=== PATIENT | female | born 1975 | race Caucasian/White ===

== ENCOUNTER 2023-05-24 09:30 | Outpatient (CLI) | payer MEDICAID, SELFPAY ==
--- NOTE | 2023-05-24 09:45 | CRLHL7_ITS ---
For Patients: As a result of the Cures Act, medical imaging exams and procedure reports are released immediately into your electronic medical record. You may view this report before your referring provider. If you have questions, please contact your health care provider. DIGITAL DIAGNOSTIC BILATERAL MAMMOGRAM USING TOMOSYNTHESIS AND COMPUTER-AIDED DETECTION RIGHT BREAST ULTRASOUND CLINICAL HISTORY: RIGHT breast lump. COMPARISON: 04/08/2021. TECHNIQUE: Digital BILATERAL mammogram in four projections. Tomosynthesis and CAD utilized. Real-time ultrasound imaging of RIGHT breast with imaging documentation. Scanning was performed by both the technologist and the radiologist. BREAST COMPOSITION: There are areas of scattered fibroglandular density. FINDINGS: There is a large microlobulated mass within the upper RIGHT breast with associated calcifications and RIGHT axillary adenopathy along with periareolar skin thickening. LEFT breast mammogram normal with unchanged intramammary lymph nodes. Targeted RIGHT breast ultrasound performed. At 1 o`clock 2 cm from the nipple, there is a large complex solid and cystic mass with heterogeneous internal echotexture measuring 3.7 x 2.3 x 3.7 cm. Enlarged RIGHT axillary lymph nodes are present with replacement of the normal central fatty kurtis. Lymph nodes measure up to 4.8 cm. IMPRESSION: Suspicious palpable mass RIGHT breast with skin thickening and RIGHT axillary adenopathy. RECOMMENDATIONS: Ultrasound-guided core needle biopsy of the RIGHT breast mass and one of the RIGHT axillary lymph nodes. Results and recommendations discussed with the patient through an interpreter for the deaf. BI-RADS Category 4: Suspicious A lay language report of this examination will be provided to the patient. Dictated by Justin Bryant MD @ 05/24/2023 11:51:07 AM /Dictated by: Justin Bryant MD @ 05/24/2023 11:51:00 AM (Electronically Signed)
--- NOTE | 2023-05-24 10:15 | CRLHL7_ITS ---
For Patients: As a result of the Cures Act, medical imaging exams and procedure reports are released immediately into your electronic medical record. You may view this report before your referring provider. If you have questions, please contact your health care provider. PLEASE SEE DIGITAL DIAGNOSTIC BILATERAL MAMMOGRAM PERFORMED SAME DAY CRL:[email or web address] justin/Dictated by: Justin Bryant MD @ 05/24/2023 11:51:00 AM (Electronically Signed)
== END 2023-05-24 09:31 | disposition home or self-care (01) ==
LOC: MAMMO 06-15 13:20
PROVIDERS: PCP Nurse Practitioner Family; Visit Provider Nurse Practitioner Family
DX: N63.10 Unspecified lump in the right breast, unspecified quadrant (principal)
CPT/HCPCS: 76642; 77066; 88305; 88341; 88342; 88360; 88361; T1013; G0279

== ENCOUNTER 2023-05-26 10:02 | Outpatient (CLI) | payer MEDICAID, SELFPAY ==
--- NOTE | 2023-05-26 10:15 | CRLHL7_ITS ---
For Patients: As a result of the Century Cures Act, medical imaging exams and procedure reports are released immediately into your electronic medical record. You may view this report before your referring provider. If you have questions, please contact your health care provider. ULTRASOUND-GUIDED BREAST BIOPSY AND POST-BIOPSY DIGITAL MAMMOGRAM FOR BIOPSY MARKER PLACEMENT CLINICAL HISTORY: Suspicious mass. COMPARISON STUDIES: 05/24/2023. TECHNIQUE: Real-time ultrasound with image documentation was used for targeting the breast lesion. Core biopsy specimens were obtained using an automated gun with a 18-gauge biopsy needle. Post-biopsy CC and ML digital mammograms were obtained to document position of the biopsy marker. CONSENT and TIME OUT: The procedure, risks, and alternatives were explained to the patient and a consent was signed. [place] Protocol was followed including pre-procedure verification that relevant information/documentation was available, reviewed and properly matched to the patient; consent accurate and complete; and equipment and supplies available. Time Out was conducted just prior to starting procedure to verify the four required elements: patient identity, correct side/site marked (if applicable), procedure, relevant images/results properly labeled and displayed (if applicable). PROCEDURE: The patient was positioned supine on the ultrasound table. The breast was prepped with ChloraPrep. 8 cc of 1 percent lidocaine used for local anesthesia. Core samples were obtained. A sterile metal biopsy clip was placed percutaneously to greer the lesion position within the breast. The specimens were placed in 10% formalin and sent to the pathology department. Pressure was held on the biopsy site until all bleeding subsided. The skin incision was closed with Steri-Strips. An ice pack was positioned over the biopsy site. Post-biopsy instructions were reviewed with the patient, and a written copy was given to her. LATERALITY: RIGHT breast. LESION: Irregular heterogeneously hypoechoic solid mass with cystic areas measuring 4.5 x 2.3 x 3.7 cm at 11 o`clock 1 cm from the nipple. SUSPICION FOR MALIGNANCY: High. NUMBER OF SAMPLES: 6. BIOPSY CLIP SHAPE: Oval. PROXIMITY OF CLIP TO TARGET: Within the lesion. IMPRESSION: Ultrasound-guided breast biopsy. When the pathology report is available, an addendum to this report will be made. ACR not applicable Dictated by Justin Bryant MD @ 05/26/2023 12:27:14 PM thomasj/Dictated by: Justin Bryant MD @ 05/26/2023 12:27:00 PM ADDENDUM: The final pathology report states invasive ductal carcinoma of the RIGHT breast with necrosis, [place] grade III of III, Brenda score 9 of 9. The RIGHT axillary lymph node was also biopsied demonstrating invasive ductal carcinoma with necrosis. Brenda grade III of III, [place] score 9 of 9. The final pathology report is concordant with the imaging findings. KIN GUTIÉRREZ M.D. Diagnostic/Nuclear Medicine Radiologist [email or web address] MADAY:margoth D& Transcribed: 2:30 p.m. (Electronically Signed)
--- NOTE | 2023-05-26 11:00 | CRLHL7_ITS ---
For Patients: As a result of the Century Cures Act, medical imaging exams and procedure reports are released immediately into your electronic medical record. You may view this report before your referring provider. If you have questions, please contact your health care provider. PLEASE SEE ULTRASOUND-GUIDED RIGHT BREAST BIOPSY PERFORMED SAME DAY CRL:[email or web address] justin/Dictated by: Justin Bryant MD @ 05/26/2023 12:27:00 PM (Electronically Signed)
--- NOTE | 2023-05-26 11:00 | CRLHL7_ITS ---
For Patients: As a result of the Century Cures Act, medical imaging exams and procedure reports are released immediately into your electronic medical record. You may view this report before your referring provider. If you have questions, please contact your health care provider. ULTRASOUND-GUIDED RIGHT AXILLARY LYMPH NODE BIOPSY CLINICAL HISTORY: SUSPICIOUS RIGHT AXILLARY ADENOPATHY COMPARISON STUDIES: 05/24/2023 TECHNIQUE: Real-time ultrasound with image documentation was used for targeting the breast lesion. Core biopsy specimens were obtained using an automated gun with a 18-gauge biopsy needle. CONSENT and TIME OUT: The procedure, risks, and alternatives were explained to the patient and a consent was signed. [place] Protocol was followed including pre-procedure verification that relevant information/documentation was available, reviewed and properly matched to the patient; consent accurate and complete; and equipment and supplies available. Time Out was conducted just prior to starting procedure to verify the four required elements: patient identity, correct side/site marked (if applicable), procedure, relevant images/results properly labeled and displayed (if applicable). PROCEDURE: The patient was positioned supine on the ultrasound table. The right axilla was prepped with ChloraPrep. 10 cc of 1 percent lidocaine used for local anesthesia. Core samples were obtained. A sterile metal biopsy clip was placed percutaneously to greer the lesion position within the right axilla. The specimens were placed in 10% formalin and sent to the pathology department. Pressure was held on the biopsy site until all bleeding subsided. The skin incision was closed with Steri-Strips. An ice pack was positioned over the biopsy site. Post-biopsy instructions were reviewed with the patient, and a written copy was given to her. LATERALITY: Right axilla LESION: Enlarged hypoechoic lymph node measuring 1.9 x 2.9 x 4.8 cm in the right axilla. SUSPICION FOR MALIGNANCY: High NUMBER OF SAMPLES: 5 BIOPSY CLIP SHAPE: Oval PROXIMITY OF CLIP TO TARGET: Within the lesion IMPRESSION: Ultrasound-guided right axillary lymph node biopsy. When the pathology report is available, an addendum to this report will be made. ACR not applicable Dictated by Justin Bryant MD @ 05/26/2023 12:29:51 PM ADDENDUM: The final pathology report states invasive ductal carcinoma of the RIGHT breast with necrosis, Brenda grade III of III, [place] score 9 of 9. The RIGHT axillary lymph node was also biopsied demonstrating invasive ductal carcinoma with necrosis. Brenda grade III of III, [place] score 9 of 9. The final pathology report is concordant with the imaging findings. KIN GUTIÉRREZ M.D. Diagnostic/Nuclear Medicine Radiologist [email or web address] MADAY:margoth D& Transcribed: 2:30 p.m. (Electronically Signed)
== END 2023-05-26 10:03 | disposition home or self-care (01) ==
LOC: US 10:05
PROVIDERS: PCP Nurse Practitioner Family; Visit Provider Nurse Practitioner Family
DX: N63.10 Unspecified lump in the right breast, unspecified quadrant (principal); C50.919 Malignant neoplasm of unspecified site of unspecified female breast
CPT/HCPCS: 19083; 38505; 76942; 77065; 88305; 88341; 88342; 88360; 88361; T1013; A4648; A4649

== ENCOUNTER 2023-06-09 07:07 | Outpatient (CLI) | payer MEDICAID, SELFPAY ==
--- NOTE | 2023-06-09 07:15 | CRLHL7_ITS ---
For Patients: As a result of the 21st Century Cures Act, medical imaging exams and procedure reports are released immediately into your electronic medical record. You may view this report before your referring provider. If you have questions, please contact your health care provider. BILATERAL BREAST MRI WITHOUT AND WITH GADOLINIUM, 06/09/2023 CLINICAL HISTORY: 47-year-old with newly diagnosed RIGHT breast cancer. Diagnosis was obtained from biopsy of a RIGHT breast mass at the 11 o???clock position 1 cm from the nipple measuring 4.5 x 2.3 x 3.7 cm and a RIGHT axillary mass measuring 1.9 x 2.9 x 4.8 cm yielding invasive ductal carcinoma with necrosis demonstrating invasive ductal carcinoma with necrosis and fibrous tissue. INDICATION FOR BREAST MRI: Staging of newly diagnosed breast cancer and screening of contralateral breast. Regional lymph nodes will also be assessed. COMPARISON STUDIES: Mammogram 05/24/2023. Ultrasound 05/24/2023. Mammogram 05/26/2023. CONTRAST: 15 cc Dotarem. TECHNIQUE: The patient was positioned prone using a breast coil. Multiple imaging sequences were obtained using 1-1.5 mm thick slices with no gap. The image sequences include T2-weighted STIR in the axial plane, T1-weighted nonfat-saturated gradient echo in the axial plane, pre- and post-contrast T1-weighted FLASH 3D with fat suppression in the axial plane, and T1-weighted FLASH high-resolution 3D with fat suppression in the sagittal plane. Image post-processing was performed on a [employer] workstation. Complex 3D rendering including maximum intensity projections (MIPS) and volumetric renderings were obtained to optimize visualization of the extent of pathology and relationship to the nipple, skin, and chest wall. This aids in determining feasibility of breast conservation surgery. Subtraction, multiplanar reconstruction, mean curve determination, and angiogenesis mapping were also performed. The study was technically adequate. FINDINGS: Amount of Fibroglandular Tissue: Heterogeneous fibroglandular tissue. Breast Background Enhancement: Moderate (50-75%). RIGHT and LEFT Breast: In the RIGHT retroareolar breast, there is an irregular cystic mass reflecting the patient???s biopsied cancer. The mass has irregular margins with irregular rim of soft tissues measuring 3.9 x 3.5 x 5.2 cm. The mass demonstrates rapid initial uptake and rapid washout. This mass extends into the nipple areolar complex with skin thickening and enhancement of the skin. There are multiple irregular nodular enhancement in the skin which likely reflects involvement of the skin. Additionally, the biopsied RIGHT axillary mass measures 3 x 2.2 x 4.6 cm with the clip present. This is an irregular marginated partially cystic mass with Type III enhancement kinetics. Additionally, there are multiple abnormal Level I axillary lymph nodes with the largest second node measuring up to 1.9 x 1.4 cm. There is a Level II lymph node measuring 3 x 1.3 cm which is along the lateral margin between the pectoralis minor and major muscle. No abnormal enhancement in the LEFT breast. There are no abnormal LEFT axillary lymph nodes. IMPRESSIONS AND RECOMMENDATIONS: 1. 5.2 x 3.9 x 3.5 cm RIGHT retroareolar cystic mass with irregular rim enhancement likely reflecting a necrotic mass. The mass extends into the nipple areolar complex. There is surrounding skin thickening and abnormal enhancement with nodular areas of enhancement within the skin. This most likely involves the skin. Additionally, the biopsied RIGHT axillary mass measures 3 x 2.2 x 4.6 cm and may represent a completely replaced RIGHT axillary lymph node or primary malignancy along the axillary tail. There are numerous Level I and a single Level II abnormal axillary lymph nodes. The second largest Level I lymph node measures 1.9 x 1.4 cm with complete replacement of the fatty hilum. There is an abnormal necrotic-appearing Level II lymph node that is along the lateral margin between the pectoralis minor major muscle measuring 1.3 x 1.8 cm. Multiple other smaller abnormal lymph nodes are present. 2. No abnormal enhancement in the LEFT breast or abnormal axillary lymph nodes. Surgical and oncological management per referring physician. BI-RADS: BI-RADS Category 6: Known Biopsy-Proven Malignancy Chey Perez M.D. Diagnostic/Breast Radiologist [email or web address] JEANP/[email or web address] PT/Dictated by: Chey Perez MD @ 06/12/2023 9:44:00 AM (Electronically Signed)
== END 2023-06-09 07:08 | disposition home or self-care (01) ==
PROVIDERS: PCP Nurse Practitioner Family; Visit Provider Surgery
DX: C50.919 Malignant neoplasm of unspecified site of unspecified female breast (principal); Z17.1 Estrogen receptor negative status [ER-]
CPT/HCPCS: 77049; T1013; A9575

== ENCOUNTER 2023-06-19 10:48 | Outpatient (CLI) | payer MEDICAID, SELFPAY ==
--- NOTE | 2023-06-19 10:45 | CRLHL7_ITS ---
For Patients: As a result of the Century Cures Act, medical imaging exams and procedure reports are released immediately into your electronic medical record. You may view this report before your referring provider. If you have questions, please contact your health care provider. INDICATION: Carcinoma of the breast. Staging. TECHNIQUE: Sagittal T1, axial FLAIR, T2 diffusion-weighted T1 multiplanar sequences before and after infusion of gadolinium contrast and axial susceptibility weighted images are obtained. FINDINGS: The lateral, 3rd and 4th ventricles are normal in size and shape. There is no evidence of acute ischemic infarction. There are no areas of diffusion restriction. There is no evidence of intracranial hemorrhage. There are no subdural fluid collections. There are no enhancing intra-axial or extra-axial lesions. No evidence of intracranial metastatic neoplasm. No enhancing calvarial or skullbase lesions to suggest osseous metastasis. The orbits, sella and skullbase are unremarkable. There is minor mucosal thickening in the left maxillary sinus. IMPRESSION: 1. No evidence of intracranial metastatic neoplasm. No evidence of acute intracranial abnormality. 2. Few tiny nonenhancing foci of FLAIR hyperintensity may relate to migraine or mild chronic microvascular ischemia. Dictated by Linwood Ayala MD @ 06/19/2023 3:46:12 PM (Electronically Signed)
--- NOTE | 2023-06-19 11:30 | CRLHL7_ITS ---
For Patients: As a result of the 21st Century Cures Act, medical imaging exams and procedure reports are released immediately into your electronic medical record. You may view this report before your referring provider. If you have questions, please contact your health care provider. Indication: BREAST CANCER Technique: Postcontrast CT chest, abdomen and pelvis. 97 cc Isovue 370 intravenous contrast. Please note that all CT scans at this facility use dose modulation, iterative reconstruction, and/or weight-based dosing when appropriate to reduce radiation dose to as low as reasonably achievable. Comparison: Breast MRI 06/09/2023 Findings: In the chest, biopsied mass in the right subareolar space again noted measuring 4.4 x 3.1 cm. Biopsy clip is present within this mass. There is overlying skin thickening. Multiple enlarged right axillary lymph nodes are present. The largest lymph node contains a biopsy clip and measures 3.2 x 2.0 cm. The subareolar mass does not involve the chest wall. No enlargement of the internal mammary lymph nodes. Residual thymic tissue is noted in the anterior mediastinum. No mediastinal, hilar or left axillary adenopathy. A 2.9 millimeter pulmonary nodule is present in the right upper lobe, 3/35. A pleural-based nodular density is present within the right middle lobe measuring 3 millimeters, 3/57. No vertebral body compression fracture. A small focal density is noted within the right lateral 5th rib, series 2, image 36 bone windows. Small focus of density within the left humeral head. Tiny focal densities are present within the T10, T8 and T2 vertebral bodies. In the abdomen, there are 3 slightly hyperattenuating lesions within the liver, measuring 1.4 cm in the left hepatic lobe and measuring 1.2 cm and 1.0 cm in the right hepatic lobe, best visualized on series 11, image 30 and series 11, image 32. The gallbladder is normal. No calcified gallstones. No biliary obstruction. The pancreas is normal. Right adrenal gland is normal. Left adrenal gland nodule is present measuring 1.2 cm. Subcentimeter cyst within the upper pole of the right kidney. Left kidney is normal. No retroperitoneal adenopathy. No mesenteric adenopathy. No hiatal hernia. Normal spleen. In the pelvis, the bladder is normal. Normal uterus. IUD in the midline of the uterus. No adnexal mass. A 2.7 cm posterior uterine fibroid is present. A sclerotic focus is present within the L1 vertebral body measuring 1.0 cm. Small density within the left posterior acetabulum. Additional sclerotic focus in the left sacrum. No pelvic or inguinal adenopathy. No abdominal wall hernia. Impression: Biopsy-proven malignancy involving the right breast and right axillary lymph nodes again demonstrated. Numerous sclerotic foci throughout the skeletal system concerning for metastatic disease. The largest lesion is within L1 and measures 1 cm. No pathologic fracture. 2.9 millimeter pulmonary nodule right upper lobe. Pleural based nodule right middle lobe measuring 3 millimeters. Indeterminate hepatic lesions measuring 1.4 cm, 1.2 cm and 1.0 cm. Also indeterminate 1.2 cm left adrenal nodule. Dedicated pre and post-contrast MRI recommended for further evaluation. Incidental 2.7 cm posterior uterine fibroid. Please note that all CT scans at this facility use dose modulation, iterative reconstruction, and/or weight-based dosing when appropriate to reduce radiation dose to as low as reasonably achievable. Dictated by Justin Bryant MD @ 06/20/2023 11:11:08 AM (Electronically Signed)
== END 2023-06-19 10:49 | disposition home or self-care (01) ==
LOC: MRI 10:50
PROVIDERS: PCP Nurse Practitioner Family; Visit Provider Surgery
DX: C50.919 Malignant neoplasm of unspecified site of unspecified female breast (principal); I67.82 Cerebral ischemia
CPT/HCPCS: 70553; 71260; 74177; T1013; A9575; Q9967

== ENCOUNTER 2023-06-22 08:16 | Outpatient (CLI) | payer MEDICAID, SELFPAY ==
--- NOTE | 2023-06-22 08:00 | CRLHL7_ITS ---
For Patients: As a result of the Century Cures Act, medical imaging exams and procedure reports are released immediately into your electronic medical record. You may view this report before your referring provider. If you have questions, please contact your health care provider. INDICATION: Newly diagnosed right-sided breast cancer. TECHNIQUE: 24.8 mCi technetium labeled MDP administered. Delayed whole body images obtained with the patient at rest. Spot lateral views of the chest and pelvis were obtained. COMPARISON: Correlation is made with a recent CT of the chest abdomen and pelvis June 19, 2023. Correlation is made with an MRI of the abdomen June 22, 2023. FINDINGS: There is good uptake of activity by the skeleton. There is no scintigraphic evidence for skeletal metastatic disease. Specifically there is no focal abnormal activity at L1, left posterior acetabulum, and left sacrum. The small sclerotic foci described on the prior CT could reflect small bone islands. There is mild degenerative-type activity within the hips, knees, and ankles. A small discrete focus within the distal right tibia is either posttraumatic or may be related to degenerative change at or just above the ankle. Plain radiographic correlation may be helpful. The kidneys are present without obstruction. IMPRESSION: No scintigraphic evidence for skeletal metastatic disease. A small focus in the distal right tibia may reflect degenerative change within the ankle or perhaps is posttraumatic in nature. Consider plain radiographic correlation of the distal right tibia and fibula and ankle. Dictated by Linwood Richardson MD @ 06/22/2023 4:53:12 PM (Electronically Signed)
--- NOTE | 2023-06-22 10:00 | CRLHL7_ITS ---
For Patients: As a result of the Century Cures Act, medical imaging exams and procedure reports are released immediately into your electronic medical record. You may view this report before your referring provider. If you have questions, please contact your health care provider. INDICATION: Metastatic breast carcinoma; lesions liver and left adrenal gland; further assessment. COMPARISON: CT chest, abdomen and pelvis with intravenous contrast June 19, 2023. TECHNIQUE: Precontrast T1 and T2 weighted imaging; T2 haste imaging; diffusion weighted imaging; in and out of phase imaging; postcontrast imaging including subtraction; 15 cc Dotarem contrast was injected. 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 No other hepatic abnormalities are identified. Some of the lesions in the right hepatic lobe that were seen on the CT might be transient hepatic perfusion abnormalities. No evidence of restriction of diffusion. No splenic pathology. No pancreatic pathology. Gallbladder is unremarkable. The right adrenal gland is unremarkable. The nodule in the left adrenal gland has significant signal loss on the out of phase imaging indicating a lipid rich adenoma. Kidneys are unremarkable. Retro aortic left renal vein with absent anterior component; normal variant. No evidence of abdominal ascites. Lymphadenopathy in the right axilla and a mass in the right breast. Impression : 1. 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 2. Other liver lesions are not identified on the MR and may represent transient perfusion abnormalities. 3. Nodule in the left internal gland has signal dropout on the out of phase imaging indicating a lipid rich adenoma. 4. Right axillary lymphadenopathy and right breast lesion. Dictated by Madison Malhotra MD @ 06/23/2023 11:50:10 AM (Electronically Signed)
== END 2023-06-22 08:17 | disposition home or self-care (01) ==
LOC: NM 08:16
PROVIDERS: PCP Nurse Practitioner Family; Visit Provider Internal Medicine Hematology & Oncology
DX: C50.911 Malignant neoplasm of unspecified site of right female breast (principal); K76.9 Liver disease, unspecified; R59.9 Enlarged lymph nodes, unspecified
CPT/HCPCS: 74183; 78306; T1013; A9503; A9575

== ENCOUNTER 2023-07-06 09:01 | Day surgery (SDC) | payer MEDICAID, SELFPAY ==
[2023-07-06 09:17] VITALS: BMI 37.8
[2023-07-06 09:36] VITALS: BP 90/51; PULSE 60; RESP 16; TEMP 36.4; O2SAT 96
[2023-07-06] MEDS: LACTATED RINGERS 1000 ML 1,000 ML 100 ML IV (09:39)
[2023-07-06] MEDS: SODIUM CHLORIDE 0.9 % (FLUSH) 10 ML SYRINGE IVF (09:40)
--- NOTE | 2023-07-06 09:49 | W.ANESCHARGE ---
Anesthesia Charges Start Date/Time Anesthesia Start Date: 07/06/23 Anesthesia Start Time: 10:00 Stop Date/Time Anesthesia Stop Date: 07/06/23 Anesthesia Stop Time: 11:04
--- NOTE | 2023-07-06 10:15 | CRLHL7_ITS ---
For Patients: As a result of the Century Cures Act, medical imaging exams and procedure reports are released immediately into your electronic medical record. You may view this report before your referring provider. If you have questions, please contact your health care provider. INDICATION: Right-sided Port-A-Cath placement. TECHNIQUE: Fluoroscopically guided intraoperative right sided Port-A-Cath placement. FINDINGS: 56.7 seconds fluoroscopy time utilized intraoperatively. A single spot image demonstrates a right-sided Port-A-Cath with its tip in the superior vena cava. IMPRESSION: 56.7 seconds fluoroscopy time utilized intraoperatively. Dictated by Linwood Richardson MD @ 07/06/2023 11:48:44 AM (Electronically Signed)
[2023-07-06] MEDS: BUPIVACAINE 0.5% 30 ML 20 ML INJECTION (10:19)
[2023-07-06] MEDS: LIDOCAINE 1% MDV 20 ML INJECTION (10:19)
[2023-07-06] MEDS: 0.9% SODIUM CHL 50 ML VIAL INJECTION (10:44)
[2023-07-06] MEDS: HEPARIN 500 UNIT/5 ML SYRINGE IVF (10:44)
--- NOTE | 2023-07-06 10:55 | CRLHL7_ITS ---
For Patients: As a result of the Century Cures Act, medical imaging exams and procedure reports are released immediately into your electronic medical record. You may view this report before your referring provider. If you have questions, please contact your health care provider. INDICATION: Right-sided breast cancer. Right-sided Port-A-Cath placement. Follow up. TECHNIQUE : AP portable post protective image of the chest. FINDINGS: There is a right-sided Port-A-Cath with its lead tip in superior vena cava. No pneumothorax. Clear lungs. Overall heart size is toward the upper limit of normal accentuated by the portable technique. Surgical clip in the right breast. IMPRESSION : Right-sided Port-A-Cath with its lead tip in the superior vena cava. No pneumothorax. Dictated by Linwood Richardson MD @ 07/06/2023 11:50:38 AM (Electronically Signed)
--- NOTE | 2023-07-06 10:56 | PM.GSPRC ---
Operative Note Pre-op diagnosis: Right breast cancer metastatic to axillary lymph nodes Post-op diagnosis: Same Type of Procedure: Right IJ port placement with ultrasound and fluoroscopic guidance Indications: The patient is a 47-year-old female who was found to have a right breast mass. 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 Because of her clinical stage in triple negative status neoadjuvant chemotherapy was recommended. She is here today for port placement. Procedure Description: After discussing the risks and benefits of the procedure, the patient signed informed consent.? The operative site was marked and the patient was brought to the operating room and placed on the operating table in supine position.? Care was taken to pad the patient's pressure points.?? The patient was then given sedation by anesthesia.?? The operative site was then prepped and draped in the usual sterile fashion.? A time-out was then performed. The patient's right internal jugular vein was visualized using ultrasound. Local anesthetic was injected into the skin overlying the vein. This was accessed percutaneously using ultrasound guidance. Using Seldinger technique, a guidewire was threaded through the needle. A skin yu was made around the wire. Next, local anesthetic was injected into the skin below the clavicle and along the proposed tract to the neck incision. A skin incision was then made with a 15 blade and a pocket created in the subcutaneous tissue with cautery. A tunneler was then used to thread the catheter from the chest wall pocket to the neck incision. Once this was done fluoroscopy was brought into the field. Over the wire the tract was dilated using fluoroscopy. The wire and the dilator were then removed leaving the sheath in the vein. Through this, the catheter was threaded. Using fluoroscopy, the catheter was positioned into the distal SVC. The catheter was noted to flush and aspirate easily. The catheter was then connected to the port. The port was placed in the pocket and secured in place with 2 0 Prolene sutures. It was noted to flush and aspirate easily. This was then locked with heparinized saline. The skin was closed with absorbable suture. Sterile dressings were applied. Instrument sponge and needle counts were correct at the end of the case. The patient was woken and taken to the PACU in stable condition. ? The patient tolerated the procedure well. Findings: Right IJ PowerPort placed in the low SVC. Anesthesia: MAC Surgeon: Devika Kwon MD Estimated blood loss (mL): 5 Condition: stable Disposition: same day
[2023-07-06 11:05] VITALS: BP 96/57; PULSE 51; RESP 16; TEMP 36.4; O2SAT 96
--- NOTE | 2023-07-06 11:08 | W.ANESCHARGE ---
Anesthesia Charges Start Date/Time Anesthesia Start Date: 07/06/23 Anesthesia Start Time: 10:00 Stop Date/Time Anesthesia Stop Date: 07/06/23 Anesthesia Stop Time: 11:04
[2023-07-06 11:15] VITALS: BP 95/55; PULSE 66; RESP 16; O2SAT 97
[2023-07-06 11:30] VITALS: BP 94/57; PULSE 57; RESP 16; O2SAT 98
[2023-07-06 11:45] VITALS: BP 103/50; PULSE 52; RESP 16; O2SAT 98
== END 2023-07-06 12:40 | disposition home or self-care (01) ==
PROVIDERS: PCP Nurse Practitioner Family; Visit Provider Surgery
PROC: (CPT 36561; principal; 2023-07-06 10:15)
DX: Z45.2 Encounter for adjustment and management of vascular access device (principal); C50.919 Malignant neoplasm of unspecified site of unspecified female breast; C77.3 Secondary and unspecified malignant neoplasm of axilla and upper limb lymph nodes; Z17.1 Estrogen receptor negative status [ER-]
CPT/HCPCS: 36561; 00532; 71045; 76000; T1013; C1788; J0665; J1642; J2250; J2704; J3010; J7120

== ENCOUNTER 2023-07-24 16:13 | Outpatient (CLI) | payer MEDICAID, SELFPAY ==
--- NOTE | 2023-07-24 16:30 | CRLHL7_ITS ---
For Patients: As a result of the Century Cures Act, medical imaging exams and procedure reports are released immediately into your electronic medical record. You may view this report before your referring provider. If you have questions, please contact your health care provider. INDICATION: ABNORMAL PET CT COMPARISON: CT head 06/29/2023 TECHNIQUE: Lemons scale and color Doppler images were acquired of the thyroid gland. FINDINGS: The thyroid gland demonstrates diffusely heterogeneous echogenicity and has a lobular outer contour. The right lobe measures 3.8 x 1.9 x 1.7 cm and the left lobe measures 3.7 x 2.2 x 1.6 cm in size. There are no suspicious masses or nodules. The isthmus measures 7 millimeters. The color Doppler images demonstrate normal vascularity. There is no evidence of cervical lymphadenopathy or parathyroid mass. IMPRESSION: Enlarged and diffusely heterogeneous thyroid gland without suspicious nodule. Dictated by Justin Bryant MD @ 07/26/2023 10:08:27 AM (Electronically Signed)
== END 2023-07-24 16:14 | disposition home or self-care (01) ==
LOC: US 16:14
PROVIDERS: PCP Nurse Practitioner Family; Visit Provider Internal Medicine Hematology & Oncology
DX: E04.1 Nontoxic single thyroid nodule (principal); D25.9 Leiomyoma of uterus, unspecified
CPT/HCPCS: 76536; T1013

== ENCOUNTER 2023-11-04 10:00 | Outpatient (RCR) | payer MEDICAID, SELFPAY ==
--- NOTE | 2023-06-28 10:41 | URNOTE ---
Pembrolizumab (J9271) has been approved for 1 dose, 07/03/2023-07/13/2023. [place] ends 07/13/2023
--- NOTE | 2023-06-30 12:20 | URNOTE ---
Request received for authorization for?Taxol (J9267), Carboplatin (J9045), Aloxi (J2469) and Pembrolizumab (J9271). Prior authorization is not required for Taxol (J9267), Carboplatin (J9045), Aloxi (J2469). Note: Pembrolizumab (J9271) has been approved for 1 dose, 07/03/2023-07/13/2023. [place] ends 07/13/2023.
[2023-07-03 13:53] LABS: Basophils Absolute Auto 0.02 K/uL (0.00-0.30); Basophils Percent Auto 0.2 % (0.0-3.0); Eosinophils Absolute Auto 0.18 K/uL (0.00-0.50); Eosinophils Percent Auto 1.8 % (0.0-7.0); Hematocrit 42.7 % (33.0-51.0); Hemoglobin* 13.7 gm/dL (12.0-16.0); Immature Granulocytes Abs Auto 0.01 K/uL (0.00-0.30); Immature Granulocytes Pct Auto 0.1 %; Lymphocytes Absolute Auto 2.72 K/uL (0.90-2.90); Lymphocytes Percent Auto 27.9 % (20-44); Mean Corpuscular HGB Conc 32 gm/dL (32-36); Mean Corpuscular Hemoglobin 28 pg (26-34); Mean Corpuscular Volume 88 fL (80-100); Monocytes Percent Auto 6.4 % (0.0-11.0); Neutrophils Percent Auto 63.6 % (42.0-72.0); Platelet Count* 322 K/uL (140-440); RDW Coefficient of Variation % 12.5 % (11.5-15.5); Red Blood Count 4.84 m/uL (4.00-5.20); White Blood Count* 9.75 K/uL (4.50-11.00)
[2023-07-03 14:01] LABS: Slide Review Reflex No
[2023-07-03 14:11] LABS: Albumin* 4.4 g/dL (3.3-5.0); Chloride* 105 mmol/L (96-114); Potassium* 4.2 mmol/L (3.6-5.1); Sodium* 139 mmol/L (135-149)
[2023-07-03 14:14] LABS: Alanine Aminotransferase* 22 U/L (4-35); Alkaline Phosphatase* 77 U/L (40-150); Anion Gap 7 mEq/L (7-15); Aspartate Amino Transferase* 25 U/L (12-35); Bilirubin Total* 0.6 mg/dL (0.1-1.5); Blood Urea Nitrogen* 13 mg/dL (5-24); Carbon Dioxide* 27 mmol/L (20-32); Creatinine* 0.5 mg/dL (0.5-1.5); Est. Creatinine Clearance* 100.98; Estimated Glomerular Filt Rate 117 ml/min
[2023-07-03 14:15] LABS: Glucose* 84 mg/dL (60-115)
--- NOTE | 2023-07-03 15:37 | ONC.NURNOTE ---
With the assistance of the medical professionals, contents of the chemotherapy binder were reviewed. We discussed at length the side effects of chemotherapy, what to report to her care team and what to do after hours. Patients questions were answered. Plan of care reviewed including: new start chemotherapy 07/04, port placement 07/06 and follow up+treatment 07/13.
[2023-07-04 08:32] VITALS: BP 106/69; PULSE 73; RESP 16; TEMP 36.6; O2SAT 96
[2023-07-04] MEDS: PEMBROLIZUMAB 200 MG, TUBING PRIMARY 1 EACH, In-line 0.2 micron filter set 1 EACH in 0.... 216 MG IVPB (08:58)
[2023-07-04] MEDS: PALONOSETRON 0.25 MG/5 ML inj IV (09:38)
[2023-07-04] MEDS: dexAMETHasone 20 MG in 0.9 % SODIUM CHLORIDE 100 ml 100 ML 408 MG IVPB (09:38)
[2023-07-04] MEDS: FAMOTIDINE 20 MG, diphenhydrAMINE 50 MG in 0.9 % SODIUM CHLORIDE 100 ml 100 ML 309 MG IVPB (10:00)
[2023-07-04 12:40] VITALS: BP 107/70; PULSE 62
[2023-07-04 12:47] VITALS: BP 97/62; PULSE 62; RESP 16; O2SAT 93
[2023-07-04 21:28] LABS: Cortisol, Serum 6.3 ug/dL
--- NOTE | 2023-07-05 11:29 | ONC.NURNOTE ---
Per Jeanie with [employer], pt called to f/u 1st day chemo. She is feeling well, no nausea. She was sleepy after chemo yesterday. Denies concerns and will call with questions.
[2023-07-06 20:02] LABS: Calcium* 9.6 mg/dL (8.4-10.6)
[2023-07-13] VITALS (10 sets, daily range): BP systolic 82–110; BP diastolic 49–75; PULSE 57–68; RESP 18–20; TEMP 36.3–36.8; O2SAT 92–95
[2023-07-13 08:59] LABS: Basophils Absolute Auto 0.04 K/uL (0.00-0.30); Basophils Percent Auto 0.5 % (0.0-3.0); Eosinophils Absolute Auto 0.36 K/uL (0.00-0.50); Eosinophils Percent Auto 4.8 % (0.0-7.0); Hematocrit 39.1 % (33.0-51.0); Hemoglobin* 12.5 gm/dL (12.0-16.0); Immature Granulocytes Abs Auto 0.02 K/uL (0.00-0.30); Immature Granulocytes Pct Auto 0.3 %; Lymphocytes Absolute Auto 2.47 K/uL (0.90-2.90); Lymphocytes Percent Auto 32.6 % (20-44); Mean Corpuscular HGB Conc 32 gm/dL (32-36); Mean Corpuscular Hemoglobin 29 pg (26-34); Mean Corpuscular Volume 89 fL (80-100); Monocytes Percent Auto 5.2 % (0.0-11.0); Neutrophils Absolute Auto 4.29 K/uL (1.7-7.0); Neutrophils Percent Auto 56.6 % (42.0-72.0); Platelet Count* 294 K/uL (140-440); RDW Coefficient of Variation % 12.5 % (11.5-15.5); Red Blood Count 4.38 m/uL (4.00-5.20); White Blood Count* 7.57 K/uL (4.50-11.00)
[2023-07-13 09:08] LABS: Slide Review Reflex No
[2023-07-13 09:19] LABS: Albumin* 4.1 g/dL (3.3-5.0); Chloride* 106 mmol/L (96-114); Sodium* 141 mmol/L (135-149)
[2023-07-13 09:20] LABS: Potassium* 3.8 mmol/L (3.6-5.1)
[2023-07-13 09:22] LABS: Alanine Aminotransferase* 26 U/L (4-35); Alkaline Phosphatase* 70 U/L (40-150); Anion Gap 8 mEq/L (7-15); Aspartate Amino Transferase* 25 U/L (12-35); Bilirubin Total* 0.5 mg/dL (0.1-1.5); Blood Urea Nitrogen* 14 mg/dL (5-24); Carbon Dioxide* 27 mmol/L (20-32); Creatinine* 0.6 mg/dL (0.5-1.5); Est. Creatinine Clearance* 84.15; Estimated Glomerular Filt Rate 112 ml/min; Glucose* 126 mg/dL (60-115); Total Protein* 7.4 g/dL (6.0-8.3)
[2023-07-13 09:23] LABS: Calcium* 9.5 mg/dL (8.4-10.6)
[2023-07-13] MEDS: PALONOSETRON 0.25 MG/5 ML inj IV (10:11)
[2023-07-13] MEDS: dexAMETHasone 20 MG in 0.9 % SODIUM CHLORIDE 100 ml 100 ML 408 MG IVPB (10:22)
[2023-07-13] MEDS: FAMOTIDINE 20 MG, diphenhydrAMINE 50 MG in 0.9 % SODIUM CHLORIDE 100 ml 100 ML 412 MG IVPB (10:40)
[2023-07-13] MEDS: METHYLPREDNISOLONE SOD SUCC 40 MG/ML IVP (12:03)
[2023-07-13] MEDS: 0.9 % SODIUM CHLORIDE 250 ml IV (16:31)
[2023-07-13] MEDS: HEPARIN 500 UNIT/5 ML SYRINGE IVF (16:31)
[2023-07-13] MEDS: SODIUM CHLORIDE 0.9 % (FLUSH) 10 ML SYRINGE IVF (16:32)
--- NOTE | 2023-07-13 16:40 | ONC.NURNOTE ---
Pt here today for C1D8 Taxo/Carbo; saw Dr. Clark. For premeds, Dex/Aloxi given first; Benadryl/Pepcid given 2nd. After Benadryl completed, pt very sleepy with some restlessness of legs. Six min into Taxol infusion, pt had sudden onset of coughing with throat tightness, dizziness, nausea with dry heaves, needing to urinate and is very pale. Taxol stopped; Janny Pham APRN in to assess pt. Monitored VS; pt hypotensive at 80's-90's/50's. Sats 92% when Taxol stopped, increased to and averaging 94%. NS 200ml/hr IV began at 1152.? At 1203 gave 40mg IV Solumedrol x 1.? Pt's symptoms improved, not orthostatic. Pt up to BR with SBA; minimal dizziness and nausea. Pt resting.? Restarted Taxol at 1249 at 69 ml/hr x 15 min. Tolerated well; VSS. Increased to 138 ml/hr x 15 min; tolerated well, VSS. Increased to 207 ml/hr x 15 min; tolerated well. Ran at full rate for remaining 50% of infusion; tolerated well and tolerated Carbo well. Per Janny Pham APRN/Dr. Clark, plan for 20mg Pepcid and Claritin PO night before and morning of next chemo. Pt will then have Benadryl 25 mg 45-60min before chemo instead of IV premed. BNN to review with pt while scheduling next follow up appts.
[2023-07-16 00:36] LABS: Cancer Antigen 125 147 U/mL (<=38)
[2023-07-28] VITALS (8 sets, daily range): BP systolic 104–133; BP diastolic 61–74; PULSE 74–91; RESP 12–16; TEMP 36.1–36.2; O2SAT 94–99
--- NOTE | 2023-07-28 07:59 | ONC.NURNOTE ---
Addendum entered by Astrid Escalante RN 07/28/23 12:28: correction-pt instructed to take claritan, not benadryl Original Note: Late entry: 07/27/23 1700. Pt called via telephone microbial specialist to come in on 07/28/23 for chemotherapy, not Keytruda. Explained to pt Janny Fleming APRN received approval to proceed with chemo with insurance not active at this time. Pt instructed to take benadryl and pepcid evening of 07/27/23 and morning of 07/28/23. Pt verbalized understanding of plan of care.
[2023-07-28 09:34] LABS: Chloride* 106 mmol/L (96-114); Sodium* 140 mmol/L (135-149)
[2023-07-28 09:35] LABS: Potassium* 3.8 mmol/L (3.6-5.1)
[2023-07-28 09:36] LABS: Basophils Absolute Auto 0.02 K/uL (0.00-0.30); Basophils Percent Auto 0.3 % (0.0-3.0); Eosinophils Absolute Auto 0.13 K/uL (0.00-0.50); Hematocrit 37.6 % (33.0-51.0); Hemoglobin* 12.1 gm/dL (12.0-16.0); Immature Granulocytes Abs Auto 0.01 K/uL (0.00-0.30); Immature Granulocytes Pct Auto 0.2 %; Lymphocytes Absolute Auto 2.34 K/uL (0.90-2.90); Lymphocytes Percent Auto 35.5 % (20-44); Mean Corpuscular HGB Conc 32 gm/dL (32-36); Mean Corpuscular Hemoglobin 29 pg (26-34); Mean Corpuscular Volume 89 fL (80-100); Monocytes Percent Auto 7.6 % (0.0-11.0); Neutrophils Absolute Auto 3.59 K/uL (1.7-7.0); Neutrophils Percent Auto 54.4 % (42.0-72.0); Platelet Count* 272 K/uL (140-440); RDW Coefficient of Variation % 12.8 % (11.5-15.5); Red Blood Count 4.25 m/uL (4.00-5.20); Slide Review Reflex No; White Blood Count* 6.59 K/uL (4.50-11.00)
[2023-07-28 09:37] LABS: Alanine Aminotransferase* 36 U/L (4-35); Alkaline Phosphatase* 67 U/L (40-150); Anion Gap 9 mEq/L (7-15); Aspartate Amino Transferase* 31 U/L (12-35); Bilirubin Total* 0.5 mg/dL (0.1-1.5); Blood Urea Nitrogen* 13 mg/dL (5-24); Carbon Dioxide* 25 mmol/L (20-32); Creatinine* 0.5 mg/dL (0.5-1.5); Est. Creatinine Clearance* 100.98; Estimated Glomerular Filt Rate 117 ml/min; Glucose* 138 mg/dL (60-115); Total Protein* 7.3 g/dL (6.0-8.3)
[2023-07-28 09:38] LABS: Calcium* 9.4 mg/dL (8.4-10.6)
[2023-07-28] MEDS: diphenhydrAMINE 25 MG CAPSULE PO (10:00)
[2023-07-28] MEDS: dexAMETHasone 20 MG in 0.9 % SODIUM CHLORIDE 100 ml 100 ML 408 MG IVPB (10:21)
[2023-07-28] MEDS: PALONOSETRON 0.25 MG/5 ML inj IV (10:22)
[2023-07-28] MEDS: FAMOTIDINE 10 MG/ML inj 20 MG IVP (10:22)
[2023-07-28] MEDS: METHYLPREDNISOLONE SOD SUCC 62.5 MG/ML (125) 125 MG IVP (12:30)
--- NOTE | 2023-07-28 14:15 | ONC.NURNOTE ---
Pt arrived at 0840 Glue Spreader here. Premeds given. Premeds finished at 11am. waited till Glue Spreader here to start Taxol at 1145. At noon Pt. feeling uncomfortable. Taxol stopped and NS running. See Janny Fleming APRN note. Janny Fleming APRN arrived immediately to assess pt. Pt placed on 10L non breather to keep sats above 90. vs at noon 133/65-80-12. 99 10L non rebreather. 1215 pt states feeling somewhat better and placed on 4LNC. vs 111/74-79-14. 95%4L. 1225 Solu medrol 125mg iv given. 1230 pt placed on room air and asking to eat. Alert and oriented , LS clear Heart reg.s1s2. After Janny Fleming APRN consulted Dr. Pena Taxol was restarted at 1314 70cc hr x15min then vs. 140cc [id number] then vs. 210cc hr x15min then vs. 275 cc hr till finished. Pt lizzie very well. no reaction.
[2023-08-02 14:06] LABS: Basophils Absolute Auto 0.02 K/uL (0.00-0.30); Basophils Percent Auto 0.3 % (0.0-3.0); Eosinophils Absolute Auto 0.11 K/uL (0.00-0.50); Eosinophils Percent Auto 1.6 % (0.0-7.0); Hematocrit 35.9 % (33.0-51.0); Hemoglobin* 11.8 gm/dL (12.0-16.0); Immature Granulocytes Abs Auto 0.03 K/uL (0.00-0.30); Immature Granulocytes Pct Auto 0.4 %; Lymphocytes Absolute Auto 2.97 K/uL (0.90-2.90); Lymphocytes Percent Auto 43.4 % (20-44); Mean Corpuscular HGB Conc 33 gm/dL (32-36); Mean Corpuscular Hemoglobin 29 pg (26-34); Mean Corpuscular Volume 87 fL (80-100); Monocytes Percent Auto 5.7 % (0.0-11.0); Neutrophils Absolute Auto 3.33 K/uL (1.7-7.0); Neutrophils Percent Auto 48.6 % (42.0-72.0); Platelet Count* 260 K/uL (140-440); RDW Coefficient of Variation % 12.7 % (11.5-15.5); Red Blood Count 4.11 m/uL (4.00-5.20); White Blood Count* 6.85 K/uL (4.50-11.00)
[2023-08-02 14:16] LABS: Slide Review Reflex No
[2023-08-02 15:03] LABS: Chloride* 102 mmol/L (96-114); Potassium* 4.3 mmol/L (3.6-5.1); Sodium* 137 mmol/L (135-149)
[2023-08-02 15:05] LABS: Creatinine* 0.6 mg/dL (0.5-1.5); Est. Creatinine Clearance* 92.66; Estimated Glomerular Filt Rate 112 ml/min
[2023-08-02 15:06] LABS: Alanine Aminotransferase* 49 U/L (4-35); Alkaline Phosphatase* 72 U/L (40-150); Anion Gap 7 mEq/L (7-15); Aspartate Amino Transferase* 38 U/L (12-35); Bilirubin Total* 0.6 mg/dL (0.1-1.5); Blood Urea Nitrogen* 17 mg/dL (5-24); Carbon Dioxide* 28 mmol/L (20-32); Glucose* 98 mg/dL (60-115); Total Protein* 7.1 g/dL (6.0-8.3)
[2023-08-02 15:07] LABS: Calcium* 9.5 mg/dL (8.4-10.6)
[2023-08-03 08:40] VITALS: BP 111/54; PULSE 86; RESP 16; TEMP 37.1; O2SAT 95
[2023-08-03] MEDS: PALONOSETRON 0.25 MG/5 ML inj IV (09:31)
[2023-08-03] MEDS: FAMOTIDINE 10 MG/ML inj 20 MG IVP (09:31)
[2023-08-03] MEDS: diphenhydrAMINE 25 MG CAPSULE PO (09:31)
[2023-08-03] MEDS: dexAMETHasone 20 MG in 0.9 % SODIUM CHLORIDE 100 ml 100 ML 400 MG IVPB (09:32)
[2023-08-03] MEDS: 0.9 % SODIUM CHLORIDE 250 ml IV (09:46)
[2023-08-03] MEDS: HEPARIN 500 UNIT/5 ML SYRINGE IVF (12:40)
[2023-08-03] MEDS: SODIUM CHLORIDE 0.9 % (FLUSH) 10 ML SYRINGE IVF (12:40)
[2023-08-05 03:06] LABS: Cancer Antigen 125 19 U/mL (<=38)
[2023-08-10 09:20] LABS: Albumin* 3.8 g/dL (3.3-5.0); Chloride* 105 mmol/L (96-114); Sodium* 140 mmol/L (135-149)
[2023-08-10 09:21] LABS: Potassium* 3.8 mmol/L (3.6-5.1)
[2023-08-10 09:23] LABS: Alanine Aminotransferase* 63 U/L (4-35); Alkaline Phosphatase* 65 U/L (40-150); Anion Gap 11 mEq/L (7-15); Aspartate Amino Transferase* 41 U/L (12-35); Bilirubin Total* 0.4 mg/dL (0.1-1.5); Blood Urea Nitrogen* 10 mg/dL (5-24); Carbon Dioxide* 24 mmol/L (20-32); Creatinine* 0.5 mg/dL (0.5-1.5); Est. Creatinine Clearance* 111.19; Estimated Glomerular Filt Rate 117 ml/min; Total Protein* 6.8 g/dL (6.0-8.3)
[2023-08-10 09:24] LABS: Calcium* 9.5 mg/dL (8.4-10.6); Glucose* 120 mg/dL (60-115)
[2023-08-10 09:30] LABS: Basophils Absolute Auto 0.03 K/uL (0.00-0.30); Basophils Percent Auto 0.5 % (0.0-3.0); Eosinophils Absolute Auto 0.13 K/uL (0.00-0.50); Eosinophils Percent Auto 2.3 % (0.0-7.0); Hematocrit 33.9 % (33.0-51.0); Hemoglobin* 11.1 gm/dL (12.0-16.0); Immature Granulocytes Abs Auto 0.01 K/uL (0.00-0.30); Immature Granulocytes Pct Auto 0.2 %; Lymphocytes Absolute Auto 2.14 K/uL (0.90-2.90); Lymphocytes Percent Auto 37.7 % (20-44); Mean Corpuscular HGB Conc 33 gm/dL (32-36); Mean Corpuscular Hemoglobin 29 pg (26-34); Mean Corpuscular Volume 88 fL (80-100); Monocytes Percent Auto 8.1 % (0.0-11.0); Neutrophils Absolute Auto 2.91 K/uL (1.7-7.0); Neutrophils Percent Auto 51.2 % (42.0-72.0); Platelet Count* 244 K/uL (140-440); RDW Coefficient of Variation % 13.1 % (11.5-15.5); Red Blood Count 3.84 m/uL (4.00-5.20); White Blood Count* 5.68 K/uL (4.50-11.00)
[2023-08-10 09:36] LABS: Slide Review Reflex No
[2023-08-10 09:46] VITALS: BP 110/73; PULSE 84; RESP 16; TEMP 35.9; O2SAT 96
[2023-08-10] MEDS: 0.9 % SODIUM CHLORIDE 250 ml IV (10:00)
[2023-08-10] MEDS: SODIUM CHLORIDE 0.9 % (FLUSH) 10 ML SYRINGE IVF (10:00)
[2023-08-10] MEDS: FAMOTIDINE 10 MG/ML inj 20 MG IVP (10:31)
[2023-08-10] MEDS: diphenhydrAMINE 25 MG CAPSULE PO (10:31)
[2023-08-10] MEDS: PALONOSETRON 0.25 MG/5 ML inj IV (10:32)
[2023-08-10] MEDS: dexAMETHasone 20 MG in 0.9 % SODIUM CHLORIDE 100 ml 100 ML 420 MG IVPB (10:32)
[2023-08-18 08:32] VITALS: BP 103/51; PULSE 72; RESP 16; TEMP 36.6; O2SAT 96
[2023-08-18 09:14] LABS: Basophils Absolute Auto 0.03 K/uL (0.00-0.30); Basophils Percent Auto 0.6 % (0.0-3.0); Eosinophils Absolute Auto 0.04 K/uL (0.00-0.50); Eosinophils Percent Auto 0.8 % (0.0-7.0); Hematocrit 33.1 % (33.0-51.0); Hemoglobin* 10.7 gm/dL (12.0-16.0); Immature Granulocytes Abs Auto 0.01 K/uL (0.00-0.30); Immature Granulocytes Pct Auto 0.2 %; Lymphocytes Absolute Auto 1.79 K/uL (0.90-2.90); Lymphocytes Percent Auto 36.9 % (20-44); Mean Corpuscular HGB Conc 32 gm/dL (32-36); Mean Corpuscular Hemoglobin 29 pg (26-34); Mean Corpuscular Volume 90 fL (80-100); Monocytes Percent Auto 8.7 % (0.0-11.0); Neutrophils Absolute Auto 2.56 K/uL (1.7-7.0); Neutrophils Percent Auto 52.8 % (42.0-72.0); Platelet Count* 284 K/uL (140-440); RDW Coefficient of Variation % 13.6 % (11.5-15.5); Red Blood Count 3.66 m/uL (4.00-5.20); White Blood Count* 4.85 K/uL (4.50-11.00)
[2023-08-18 09:18] LABS: Slide Review Reflex No
[2023-08-18 09:21] LABS: Albumin* 3.7 g/dL (3.3-5.0); Chloride* 108 mmol/L (96-114); Potassium* 3.7 mmol/L (3.6-5.1); Sodium* 141 mmol/L (135-149)
[2023-08-18 09:24] LABS: Alanine Aminotransferase* 55 U/L (4-35); Alkaline Phosphatase* 69 U/L (40-150); Aspartate Amino Transferase* 35 U/L (12-35); Bilirubin Total* 0.5 mg/dL (0.1-1.5); Blood Urea Nitrogen* 12 mg/dL (5-24); Carbon Dioxide* 26 mmol/L (20-32); Creatinine* 0.4 mg/dL (0.5-1.5); Est. Creatinine Clearance* 138.99; Estimated Glomerular Filt Rate 124 ml/min; Glucose* 94 mg/dL (60-115); Total Protein* 6.7 g/dL (6.0-8.3)
[2023-08-18 09:31] LABS: Anion Gap 7 mEq/L (7-15)
[2023-08-18] MEDS: diphenhydrAMINE 25 MG CAPSULE PO (09:57)
[2023-08-18] MEDS: dexAMETHasone 20 MG in 0.9 % SODIUM CHLORIDE 100 ml 100 ML 408 MG IVPB (10:14)
[2023-08-18] MEDS: SODIUM CHLORIDE 0.9 % (FLUSH) 10 ML SYRINGE IVF (10:15)
[2023-08-18] MEDS: 0.9 % SODIUM CHLORIDE 250 ml IV (10:15)
[2023-08-18] MEDS: HEPARIN 500 UNIT/5 ML SYRINGE IVF (10:15)
[2023-08-18] MEDS: PALONOSETRON 0.25 MG/5 ML inj IV (10:15)
[2023-08-18] MEDS: FAMOTIDINE 10 MG/ML inj 20 MG IVP (10:36)
[2023-08-18 11:00] VITALS: BP 95/61; PULSE 69; RESP 14; TEMP 36.6; O2SAT 98
[2023-08-18 11:21] VITALS: BP 102/59; PULSE 68; RESP 14; TEMP 36.9; O2SAT 98
[2023-08-18 13:04] VITALS: BP 100/63; PULSE 80; RESP 14; TEMP 37.2; O2SAT 95
--- NOTE | 2023-08-18 13:04 | ONC.NURNOTE ---
Raji. treatment well.
[2023-08-24] MEDS: HEPARIN 500 UNIT/5 ML SYRINGE IVF (14:37)
[2023-08-24] MEDS: SODIUM CHLORIDE 0.9 % (FLUSH) 10 ML SYRINGE IVF (14:37)
[2023-08-24 14:42] LABS: Basophils Absolute Auto 0.02 K/uL (0.00-0.30); Basophils Percent Auto 0.3 % (0.0-3.0); Eosinophils Absolute Auto 0.09 K/uL (0.00-0.50); Eosinophils Percent Auto 1.5 % (0.0-7.0); Hematocrit 32.8 % (33.0-51.0); Hemoglobin* 10.6 gm/dL (12.0-16.0); Immature Granulocytes Abs Auto 0.02 K/uL (0.00-0.30); Immature Granulocytes Pct Auto 0.3 %; Lymphocytes Absolute Auto 2.31 K/uL (0.90-2.90); Lymphocytes Percent Auto 37.3 % (20-44); Mean Corpuscular HGB Conc 32 gm/dL (32-36); Mean Corpuscular Hemoglobin 29 pg (26-34); Mean Corpuscular Volume 91 fL (80-100); Monocytes Percent Auto 7.4 % (0.0-11.0); Neutrophils Absolute Auto 3.29 K/uL (1.7-7.0); Neutrophils Percent Auto 53.2 % (42.0-72.0); Platelet Count* 263 K/uL (140-440); Red Blood Count 3.62 m/uL (4.00-5.20); White Blood Count* 6.19 K/uL (4.50-11.00)
[2023-08-24 15:08] LABS: Slide Review Reflex No
[2023-08-24 15:09] LABS: Albumin* 3.9 g/dL (3.3-5.0); Chloride* 107 mmol/L (96-114); Potassium* 4.1 mmol/L (3.6-5.1); Sodium* 139 mmol/L (135-149)
[2023-08-24 15:12] LABS: Alanine Aminotransferase* 46 U/L (4-35); Aspartate Amino Transferase* 31 U/L (12-35); Bilirubin Total* 0.4 mg/dL (0.1-1.5); Blood Urea Nitrogen* 20 mg/dL (5-24); Creatinine* 0.9 mg/dL (0.5-1.5); Est. Creatinine Clearance* 61.77; Estimated Glomerular Filt Rate 80 ml/min; Glucose* 100 mg/dL (60-115)
[2023-08-24 17:15] LABS: Alkaline Phosphatase* 75 U/L (40-150)
[2023-08-24 17:16] LABS: Anion Gap 9 mEq/L (7-15); Carbon Dioxide* 23 mmol/L (20-32); Total Protein* 6.9 g/dL (6.0-8.3)
[2023-08-25] MEDS: diphenhydrAMINE 25 MG CAPSULE PO (09:07)
[2023-08-25] MEDS: dexAMETHasone 20 MG in 0.9 % SODIUM CHLORIDE 100 ml 100 ML 408 MG IVPB (09:09)
[2023-08-25] MEDS: PALONOSETRON 0.25 MG/5 ML inj IV (09:09)
[2023-08-25] MEDS: FAMOTIDINE 10 MG/ML inj 20 MG IVP (09:09)
[2023-08-25 09:32] VITALS: BP 102/64; PULSE 81; RESP 20; TEMP 37.1; O2SAT 96
[2023-08-25] MEDS: 0.9 % SODIUM CHLORIDE 250 ml IV (10:06)
[2023-08-25] MEDS: SODIUM CHLORIDE 0.9 % (FLUSH) 10 ML SYRINGE IVF ×2 (10:07→12:31)
[2023-08-25] MEDS: HEPARIN 500 UNIT/5 ML SYRINGE IVF (12:31)
[2023-09-01 08:32] VITALS: BP 96/50; PULSE 76; RESP 16; TEMP 37; O2SAT 96
[2023-09-01 08:32] LABS: Basophils Absolute Auto 0.03 K/uL (0.00-0.30); Basophils Percent Auto 0.5 % (0.0-3.0); Eosinophils Absolute Auto 0.08 K/uL (0.00-0.50); Eosinophils Percent Auto 1.4 % (0.0-7.0); Hematocrit 33.6 % (33.0-51.0); Hemoglobin* 10.8 gm/dL (12.0-16.0); Immature Granulocytes Abs Auto 0.03 K/uL (0.00-0.30); Immature Granulocytes Pct Auto 0.5 %; Lymphocytes Absolute Auto 2.06 K/uL (0.90-2.90); Lymphocytes Percent Auto 37.3 % (20-44); Mean Corpuscular HGB Conc 32 gm/dL (32-36); Mean Corpuscular Hemoglobin 30 pg (26-34); Mean Corpuscular Volume 92 fL (80-100); Monocytes Percent Auto 5.8 % (0.0-11.0); Neutrophils Absolute Auto 3.01 K/uL (1.7-7.0); Neutrophils Percent Auto 54.5 % (42.0-72.0); Platelet Count* 236 K/uL (140-440); RDW Coefficient of Variation % 14.5 % (11.5-15.5); Red Blood Count 3.66 m/uL (4.00-5.20); White Blood Count* 5.53 K/uL (4.50-11.00)
[2023-09-01 08:42] LABS: Slide Review Reflex No
[2023-09-01 08:52] LABS: Albumin* 3.7 g/dL (3.3-5.0); Chloride* 109 mmol/L (96-114); Potassium* 3.8 mmol/L (3.6-5.1); Sodium* 141 mmol/L (135-149)
[2023-09-01 08:54] LABS: Anion Gap 6 mEq/L (7-15); Bilirubin Total* 0.4 mg/dL (0.1-1.5); Carbon Dioxide* 26 mmol/L (20-32); Creatinine* 0.4 mg/dL (0.5-1.5); Est. Creatinine Clearance* 138.99; Estimated Glomerular Filt Rate 124 ml/min
[2023-09-01 08:55] LABS: Alanine Aminotransferase* 34 U/L (4-35); Alkaline Phosphatase* 64 U/L (40-150); Aspartate Amino Transferase* 39 U/L (12-35); Blood Urea Nitrogen* 11 mg/dL (5-24); Glucose* 95 mg/dL (60-115); Total Protein* 6.6 g/dL (6.0-8.3)
[2023-09-01] MEDS: diphenhydrAMINE 25 MG CAPSULE PO (09:37)
[2023-09-01] MEDS: 0.9 % SODIUM CHLORIDE 250 ml IV (09:38)
[2023-09-01] MEDS: FAMOTIDINE 10 MG/ML inj 20 MG IVP (09:38)
[2023-09-01] MEDS: PALONOSETRON 0.25 MG/5 ML inj IV (09:38)
[2023-09-01] MEDS: SODIUM CHLORIDE 0.9 % (FLUSH) 10 ML SYRINGE IVF ×2 (09:39→12:50)
[2023-09-01] MEDS: dexAMETHasone 20 MG in 0.9 % SODIUM CHLORIDE 100 ml 100 ML 408 MG IVPB (09:45)
[2023-09-01] MEDS: HEPARIN 500 UNIT/5 ML SYRINGE IVF (12:50)
[2023-09-08 09:01] LABS: Basophils Absolute Auto 0.02 K/uL (0.00-0.30); Basophils Percent Auto 0.3 % (0.0-3.0); Eosinophils Absolute Auto 0.08 K/uL (0.00-0.50); Eosinophils Percent Auto 1.4 % (0.0-7.0); Hematocrit 33.8 % (33.0-51.0); Immature Granulocytes Abs Auto 0.03 K/uL (0.00-0.30); Immature Granulocytes Pct Auto 0.5 %; Lymphocytes Absolute Auto 2.32 K/uL (0.90-2.90); Lymphocytes Percent Auto 40.1 % (20-44); Mean Corpuscular HGB Conc 33 gm/dL (32-36); Mean Corpuscular Hemoglobin 30 pg (26-34); Mean Corpuscular Volume 92 fL (80-100); Monocytes Percent Auto 7.4 % (0.0-11.0); Neutrophils Absolute Auto 2.91 K/uL (1.7-7.0); Neutrophils Percent Auto 50.3 % (42.0-72.0); Platelet Count* 250 K/uL (140-440); RDW Coefficient of Variation % 15.1 % (11.5-15.5); Red Blood Count 3.68 m/uL (4.00-5.20); White Blood Count* 5.79 K/uL (4.50-11.00)
[2023-09-08 09:08] VITALS: BP 104/67; PULSE 63; RESP 16; TEMP 36.6; O2SAT 98
[2023-09-08 09:15] LABS: Albumin* 3.8 g/dL (3.3-5.0); Chloride* 108 mmol/L (96-114)
[2023-09-08 09:16] LABS: Potassium* 3.8 mmol/L (3.6-5.1); Sodium* 139 mmol/L (135-149)
[2023-09-08 09:18] LABS: Alkaline Phosphatase* 65 U/L (40-150); Anion Gap 7 mEq/L (7-15); Aspartate Amino Transferase* 36 U/L (12-35); Bilirubin Total* 0.5 mg/dL (0.1-1.5); Blood Urea Nitrogen* 10 mg/dL (5-24); Carbon Dioxide* 24 mmol/L (20-32); Creatinine* 0.5 mg/dL (0.5-1.5); Est. Creatinine Clearance* 111.19; Estimated Glomerular Filt Rate 117 ml/min; Slide Review Reflex No
[2023-09-08 09:19] LABS: Alanine Aminotransferase* 39 U/L (4-35); Calcium* 8.8 mg/dL (8.4-10.6); Glucose* 86 mg/dL (60-115)
[2023-09-08] MEDS: diphenhydrAMINE 25 MG CAPSULE PO (10:12)
[2023-09-08] MEDS: PALONOSETRON 0.25 MG/5 ML inj IV (10:12)
[2023-09-08] MEDS: FAMOTIDINE 10 MG/ML inj 20 MG IVP (10:12)
[2023-09-08] MEDS: dexAMETHasone 20 MG in 0.9 % SODIUM CHLORIDE 100 ml 100 ML 408 MG IVPB (10:12)
[2023-09-08] MEDS: SODIUM CHLORIDE 0.9 % (FLUSH) 10 ML SYRINGE IVF (13:27)
[2023-09-08] MEDS: HEPARIN 500 UNIT/5 ML SYRINGE IVF (13:27)
[2023-09-14 08:06] LABS: Basophils Percent Auto 0.7 % (0.0-3.0); Hematocrit 34.7 % (33.0-51.0); Hemoglobin* 11.2 gm/dL (12.0-16.0); Immature Granulocytes Pct Auto 0.7 %; Lymphocytes Percent Auto 45.5 % (20-44); Mean Corpuscular HGB Conc 32 gm/dL (32-36); Mean Corpuscular Hemoglobin 30 pg (26-34); Mean Corpuscular Volume 92 fL (80-100); Monocytes Percent Auto 5.9 % (0.0-11.0); Neutrophils Percent Auto 45.2 % (42.0-72.0); Platelet Count* 242 K/uL (140-440); RDW Coefficient of Variation % 15.6 % (11.5-15.5); Red Blood Count 3.76 m/uL (4.00-5.20); White Blood Count* 4.44 K/uL (4.50-11.00)
[2023-09-14 08:08] LABS: Slide Review Reflex No
[2023-09-14 08:27] LABS: Albumin* 3.9 g/dL (3.3-5.0); Chloride* 101 mmol/L (96-114); Potassium* 3.9 mmol/L (3.6-5.1); Sodium* 138 mmol/L (135-149)
[2023-09-14 08:30] LABS: Alanine Aminotransferase* 62 U/L (4-35); Alkaline Phosphatase* 59 U/L (40-150); Anion Gap 13 mEq/L (7-15); Aspartate Amino Transferase* 45 U/L (12-35); Bilirubin Total* 0.7 mg/dL (0.1-1.5); Blood Urea Nitrogen* 14 mg/dL (5-24); Carbon Dioxide* 24 mmol/L (20-32); Creatinine* 0.5 mg/dL (0.5-1.5); Est. Creatinine Clearance* 100.98; Estimated Glomerular Filt Rate 117 ml/min; Glucose* 91 mg/dL (60-115)
[2023-09-14 08:31] LABS: Calcium* 8.8 mg/dL (8.4-10.6)
[2023-09-14] MEDS: SODIUM CHLORIDE 0.9 % (FLUSH) 10 ML SYRINGE IVF ×2 (09:59→12:54)
[2023-09-14] MEDS: 0.9 % SODIUM CHLORIDE 250 ml IV (09:59)
[2023-09-14] MEDS: diphenhydrAMINE 25 MG CAPSULE PO (09:59)
[2023-09-14] MEDS: PALONOSETRON 0.25 MG/5 ML inj IV (10:00)
[2023-09-14] MEDS: FAMOTIDINE 10 MG/ML inj 20 MG IVP (10:00)
[2023-09-14] MEDS: dexAMETHasone 20 MG in 0.9 % SODIUM CHLORIDE 100 ml 100 ML 408 MG IVPB (10:09)
[2023-09-14] MEDS: HEPARIN 500 UNIT/5 ML SYRINGE IVF (12:54)
--- NOTE | 2023-09-19 14:42 | URNOTE ---
Request received for authorization for?the following meds, pt enrolled in emergency Medical Assistance. Adriamycin 115mg IVP? J-[id number]? No PA needed per [facility] fee schedule Cytoxan 1150mg IV?[id number]? No PA needed per [facility] fee schedule Aloxi 0.25mg IVP?[id number]? No PA needed per [facility] fee schedule Emend 150mg IV?[id number]? No PA needed per [facility] fee schedule Pembrolizumab 200mg IV (this PA is currently pending as of 09/19/23, may take longer then 20days per Mila Rodriguez at [facility]) [id number]
[2023-09-22 09:16] VITALS: BP 109/68; PULSE 81; RESP 18; TEMP 36.6; O2SAT 96
[2023-09-22 09:35] LABS: Basophils Absolute Auto 0.04 K/uL (0.00-0.30); Basophils Percent Auto 0.5 % (0.0-3.0); Eosinophils Absolute Auto 0.13 K/uL (0.00-0.50); Eosinophils Percent Auto 1.6 % (0.0-7.0); Hematocrit 33.3 % (33.0-51.0); Hemoglobin* 10.9 gm/dL (12.0-16.0); Immature Granulocytes Abs Auto 0.02 K/uL (0.00-0.30); Immature Granulocytes Pct Auto 0.3 %; Lymphocytes Absolute Auto 2.32 K/uL (0.90-2.90); Lymphocytes Percent Auto 29.2 % (20-44); Mean Corpuscular HGB Conc 33 gm/dL (32-36); Mean Corpuscular Hemoglobin 30 pg (26-34); Mean Corpuscular Volume 93 fL (80-100); Monocytes Percent Auto 10.7 % (0.0-11.0); Neutrophils Absolute Auto 4.58 K/uL (1.7-7.0); Neutrophils Percent Auto 57.7 % (42.0-72.0); Platelet Count* 271 K/uL (140-440); RDW Coefficient of Variation % 16.5 % (11.5-15.5); White Blood Count* 7.94 K/uL (4.50-11.00)
[2023-09-22 09:37] LABS: Slide Review Reflex No
[2023-09-22] MEDS: SODIUM CHLORIDE 0.9 % (FLUSH) 10 ML SYRINGE IVF ×2 (09:45→14:10)
[2023-09-22 10:12] LABS: Chloride* 104 mmol/L (96-114)
[2023-09-22 10:13] LABS: Potassium* 3.8 mmol/L (3.6-5.1); Sodium* 138 mmol/L (135-149)
[2023-09-22 10:15] LABS: Anion Gap 8 mEq/L (7-15); Carbon Dioxide* 26 mmol/L (20-32); Creatinine* 0.5 mg/dL (0.5-1.5); Est. Creatinine Clearance* 100.98; Estimated Glomerular Filt Rate 117 ml/min
[2023-09-22 10:16] LABS: Alanine Aminotransferase* 44 U/L (4-35); Alkaline Phosphatase* 72 U/L (40-150); Aspartate Amino Transferase* 31 U/L (12-35); Bilirubin Total* 0.7 mg/dL (0.1-1.5); Blood Urea Nitrogen* 9 mg/dL (5-24); Calcium* 9.2 mg/dL (8.4-10.6); Glucose* 96 mg/dL (60-115); Total Protein* 7.5 g/dL (6.0-8.3)
[2023-09-22] MEDS: PALONOSETRON 0.25 MG/5 ML inj IV (11:00)
[2023-09-22] MEDS: diphenhydrAMINE 25 MG CAPSULE PO (11:00)
[2023-09-22] MEDS: 0.9 % SODIUM CHLORIDE 250 ml IV (11:01)
[2023-09-22] MEDS: FAMOTIDINE 10 MG/ML inj 20 MG IVP (11:01)
[2023-09-22] MEDS: dexAMETHasone 20 MG in 0.9 % SODIUM CHLORIDE 100 ml 100 ML 420 MG IVPB (11:10)
[2023-09-22] MEDS: HEPARIN 500 UNIT/5 ML SYRINGE IVF (14:10)
--- NOTE | 2023-09-26 14:04 | URNOTE ---
Request received for authorization for the following meds, pt enrolled in emergency Medical Assistance. Adriamycin 115mg IVP? J-9000? No PA needed per [facility] fee schedule Cytoxan 1150mg IV? J-9070? No PA needed per [facility] fee schedule Aloxi 0.25mg IVP? J-2469? No PA needed per [facility] fee schedule Emend 150mg IV? J-1453? No PA needed per [facility] fee schedule Pembrolizumab (J9271) 200mg every 3 weeks X3 cycles has been approved for 3 doses(600units), 07/14/2023-11/21/2023. [employer] eligibility ends 11/21/2023.
[2023-09-29 08:43] LABS: Basophils Absolute Auto 0.04 K/uL (0.00-0.30); Basophils Percent Auto 0.7 % (0.0-3.0); Eosinophils Percent Auto 1.8 % (0.0-7.0); Hematocrit 33.6 % (33.0-51.0); Hemoglobin* 10.8 gm/dL (12.0-16.0); Immature Granulocytes Abs Auto 0.07 K/uL (0.00-0.30); Immature Granulocytes Pct Auto 1.2 %; Lymphocytes Percent Auto 44.9 % (20-44); Mean Corpuscular HGB Conc 32 gm/dL (32-36); Mean Corpuscular Hemoglobin 30 pg (26-34); Mean Corpuscular Volume 95 fL (80-100); Monocytes Percent Auto 5.7 % (0.0-11.0); Neutrophils Absolute Auto 2.59 K/uL (1.7-7.0); Neutrophils Percent Auto 45.7 % (42.0-72.0); Platelet Count* 317 K/uL (140-440); RDW Coefficient of Variation % 16.1 % (11.5-15.5); Red Blood Count 3.55 m/uL (4.00-5.20); White Blood Count* 5.66 K/uL (4.50-11.00)
[2023-09-29 08:46] VITALS: BP 111/72; PULSE 67; RESP 16; TEMP 36.7; O2SAT 93
[2023-09-29 08:55] LABS: Chloride* 107 mmol/L (96-114); Glucose* 91 mg/dL (60-115); Potassium* 3.8 mmol/L (3.6-5.1); Sodium* 141 mmol/L (135-149)
[2023-09-29 08:58] LABS: Slide Review Reflex No
[2023-09-29 09:08] LABS: Albumin* 3.8 g/dL (3.3-5.0)
[2023-09-29 09:11] LABS: Alanine Aminotransferase* 41 U/L (4-35); Alkaline Phosphatase* 63 U/L (40-150); Anion Gap 8 mEq/L (7-15); Aspartate Amino Transferase* 35 U/L (12-35); Bilirubin Total* 0.4 mg/dL (0.1-1.5); Blood Urea Nitrogen* 15 mg/dL (5-24); Carbon Dioxide* 26 mmol/L (20-32); Creatinine* 0.5 mg/dL (0.5-1.5); Est. Creatinine Clearance* 100.98; Estimated Glomerular Filt Rate 117 ml/min; Total Protein* 7.1 g/dL (6.0-8.3)
[2023-09-29] MEDS: dexAMETHasone 20 MG in 0.9 % SODIUM CHLORIDE 100 ml 100 ML 408 MG IVPB (09:42)
[2023-09-29] MEDS: FAMOTIDINE 10 MG/ML inj 20 MG IVP (09:42)
[2023-09-29] MEDS: diphenhydrAMINE 25 MG CAPSULE PO (09:42)
[2023-09-29] MEDS: PALONOSETRON 0.25 MG/5 ML inj IV (09:43)
[2023-09-29] MEDS: HEPARIN 500 UNIT/5 ML SYRINGE IVF (12:59)
[2023-09-29] MEDS: SODIUM CHLORIDE 0.9 % (FLUSH) 10 ML SYRINGE IVF (12:59)
--- NOTE | 2023-09-29 14:26 | ONC.NURNOTE ---
Pt here for Taxol/Carbo. Pt started coughing toward end of Taxol infusion. [employer] Cl[employer] Repairer called to help assess whether coughing was related to Taxol infusion or if related to pt's viral illness. VSS at the time. O2 sats 96% on room air. No rash, flushing. Janny Fleming INDUSTRIAL ENGINEERING INTERN at bedside, LS cta B without wheezing per Janny's assessment. Pt states this has happened to her at work as well. Reinforced with pt the importance of monitoring her symptoms at home and to call if she has worsening symptoms, fever, or any concerns. Pt verbalized understanding of plan of care.
[2023-10-11 08:25] LABS: Basophils Absolute Auto 0.03 K/uL (0.00-0.30); Basophils Percent Auto 0.5 % (0.0-3.0); Eosinophils Absolute Auto 0.25 K/uL (0.00-0.50); Eosinophils Percent Auto 4.3 % (0.0-7.0); Hematocrit 35.7 % (33.0-51.0); Hemoglobin* 11.5 gm/dL (12.0-16.0); Immature Granulocytes Abs Auto 0.01 K/uL (0.00-0.30); Immature Granulocytes Pct Auto 0.2 %; Lymphocytes Absolute Auto 2.42 K/uL (0.90-2.90); Lymphocytes Percent Auto 41.9 % (20-44); Mean Corpuscular HGB Conc 32 gm/dL (32-36); Mean Corpuscular Hemoglobin 31 pg (26-34); Mean Corpuscular Volume 96 fL (80-100); Neutrophils Absolute Auto 2.61 K/uL (1.7-7.0); Neutrophils Percent Auto 45.1 % (42.0-72.0); Platelet Count* 281 K/uL (140-440); RDW Coefficient of Variation % 16.3 % (11.5-15.5); Red Blood Count 3.72 m/uL (4.00-5.20); White Blood Count* 5.78 K/uL (4.50-11.00)
[2023-10-11 08:29] LABS: Slide Review Reflex No
[2023-10-11 08:37] LABS: Albumin* 4.1 g/dL (3.3-5.0); Chloride* 106 mmol/L (96-114); Sodium* 139 mmol/L (135-149)
[2023-10-11 08:40] LABS: Alanine Aminotransferase* 58 U/L (4-35); Alkaline Phosphatase* 64 U/L (40-150); Anion Gap 6 mEq/L (7-15); Aspartate Amino Transferase* 39 U/L (12-35); Bilirubin Total* 0.8 mg/dL (0.1-1.5); Blood Urea Nitrogen* 12 mg/dL (5-24); Carbon Dioxide* 27 mmol/L (20-32); Creatinine* 0.6 mg/dL (0.5-1.5); Est. Creatinine Clearance* 84.15; Estimated Glomerular Filt Rate 112 ml/min; Glucose* 96 mg/dL (60-115); Total Protein* 7.1 g/dL (6.0-8.3)
[2023-10-11 08:41] LABS: Calcium* 8.8 mg/dL (8.4-10.6)
[2023-10-11 09:01] LABS: HCG Qualitative Serum* Negative (Negative)
[2023-10-11 09:45] VITALS: BP 102/57; PULSE 77
[2023-10-11] MEDS: dexAMETHasone 10 MG in 0.9 % SODIUM CHLORIDE 100 ml 100 ML 404 MG IVPB (10:30)
[2023-10-11] MEDS: SODIUM CHLORIDE 0.9 % (FLUSH) 10 ML SYRINGE IVF ×2 (10:30→12:10)
[2023-10-11] MEDS: PALONOSETRON 0.25 MG/5 ML inj IV (10:30)
[2023-10-11] MEDS: 0.9 % SODIUM CHLORIDE 250 ml IV (10:30)
[2023-10-11] MEDS: FOSAPREPITANT 150 MG inj 150 MG in 0.9 % SODIUM CHLORIDE 250 ml 250 ML 510 MG IVPB (10:50)
[2023-10-11 10:57] LABS: Free T4 Free Thyroxine* 0.86 ng/dL (0.70-1.85)
[2023-10-11] MEDS: DOXOrubicin 2 MG/ML inj 115 MG IVP (11:24)
[2023-10-11] MEDS: HEPARIN 500 UNIT/5 ML SYRINGE IVF (12:10)
[2023-10-12 15:56] VITALS: BP 90/62; PULSE 62; RESP 16; TEMP 37.1; O2SAT 94
[2023-10-12] MEDS: PEGFILGRASTIM-JMDB 6 MG/0.6 ML SYRINGE SUBCUT (16:09)
[2023-10-12 21:49] LABS: Total T3 86 ng/dL (80-200)
[2023-10-12 22:58] LABS: Cortisol, Serum 5.9 ug/dL
[2023-11-02 09:25] VITALS: BP 129/50; PULSE 69; RESP 16; TEMP 36.9; O2SAT 96
[2023-11-02 09:58] LABS: Basophils Absolute Auto 0.08 K/uL (0.00-0.30); Basophils Percent Auto 1.2 % (0.0-3.0); Eosinophils Absolute Auto 0.03 K/uL (0.00-0.50); Eosinophils Percent Auto 0.5 % (0.0-7.0); Hematocrit 34.7 % (33.0-51.0); Hemoglobin* 11.2 gm/dL (12.0-16.0); Immature Granulocytes Abs Auto 0.03 K/uL (0.00-0.30); Immature Granulocytes Pct Auto 0.5 %; Lymphocytes Absolute Auto 1.87 K/uL (0.90-2.90); Lymphocytes Percent Auto 28.2 % (20-44); Mean Corpuscular HGB Conc 32 gm/dL (32-36); Mean Corpuscular Hemoglobin 31 pg (26-34); Mean Corpuscular Volume 96 fL (80-100); Monocytes Percent Auto 10.6 % (0.0-11.0); Neutrophils Absolute Auto 3.92 K/uL (1.7-7.0); Platelet Count* 413 K/uL (140-440); RDW Coefficient of Variation % 15.2 % (11.5-15.5); White Blood Count* 6.63 K/uL (4.50-11.00)
[2023-11-02 10:10] LABS: Slide Review Reflex No
[2023-11-02 10:20] LABS: HCG Qualitative Serum* Negative (Negative)
[2023-11-02] MEDS: PALONOSETRON 0.25 MG/5 ML inj IV (12:54)
[2023-11-02] MEDS: dexAMETHasone 10 MG in 0.9 % SODIUM CHLORIDE 100 ml 100 ML 404 MG IVPB (12:54)
--- NOTE | 2023-11-02 13:08 | URNOTE ---
Doxorubicin (J9000) has been approved for 7 doses every 21 days. 07/14/2023-11/21/2023 PA#[id number] Cyclophosphamide (J9070) has been approved for 7 doses every 21 days 07/14/2023-11/21/2023 PA#[id number] Dexamethasone (J1100), Fosaprepitant (J1453), Palonosetron (J2469), Fulphila(Q5108), Normal Saline (J7050) and Heparin Flush (J1642) have been denied. Authorization criteria are not met. Not approved for indicated diagnosis
[2023-11-02] MEDS: FOSAPREPITANT 150 MG inj 150 MG in 0.9 % SODIUM CHLORIDE 250 ml 250 ML 510 MG IVPB (13:15)
[2023-11-02] MEDS: DOXOrubicin 2 MG/ML inj 115 MG IVP (13:53)
--- NOTE | 2023-11-02 16:40 | ONC.NURNOTE ---
Per Minal Dumas, Saddle Stitcher Officer, ok to treat patient with denial of PA for Dexamethasone, Aloxi, Emend, Fulphila; [facility] will cover the cost. PA approved for Doxorubicin, Cyclophosphamide; Keytrstephanie previously approved.
[2023-11-04] MEDS: PEGFILGRASTIM-JMDB 6 MG/0.6 ML SYRINGE SUBCUT (10:13)
--- NOTE | 2023-12-29 13:12 | ONC.NURNOTE ---
[employer] spoke with Jeanie (timber harvester operator) and she will attempt to get a hold of patient and let her know no appointment needed until after surgery
== END 2023-11-04 13:29 | disposition home or self-care (01) ==
LOC: CCIC 10:00
PROVIDERS: Internal Medicine Hematology & Oncology; PCP Nurse Practitioner Family; Referring Provider Nurse Practitioner Family; Visit Provider Clinical Nurse Specialist
DX: C50.919 Malignant neoplasm of unspecified site of unspecified female breast (principal); Z17.1 Estrogen receptor negative status [ER-]; R11.2 Nausea with vomiting, unspecified; T45.1X5A Adverse effect of antineoplastic and immunosuppressive drugs, initial encounter
CPT/HCPCS: 36415; 36591; 80053; 82533; 84439; 84443; 84480; 84703; 85025; 86304; 96372; 96376; 96409; 96411; 96413; 96415; 96417; 99202; 99205; 99211; 99212; 99215; J9000; J9070; T1013; A9270; J1100; J1200; J1453; J1642; J2469; J2920; J2930; J7050; J9045; J9267; J9271; Q5108; S0028

== ENCOUNTER 2024-01-08 15:00 | Outpatient (RCR) | payer MEDICAID, SELFPAY ==
[2023-11-21 09:20] LABS: Basophils Absolute Auto 0.06 K/uL (0.00-0.30); Basophils Percent Auto 0.9 % (0.0-3.0); Eosinophils Absolute Auto 0.09 K/uL (0.00-0.50); Eosinophils Percent Auto 1.4 % (0.0-7.0); Hematocrit 36.1 % (33.0-51.0); Hemoglobin* 11.6 gm/dL (12.0-16.0); Immature Granulocytes Abs Auto 0.04 K/uL (0.00-0.30); Immature Granulocytes Pct Auto 0.6 %; Lymphocytes Absolute Auto 1.86 K/uL (0.90-2.90); Lymphocytes Percent Auto 28.3 % (20-44); Mean Corpuscular HGB Conc 32 gm/dL (32-36); Mean Corpuscular Hemoglobin 31 pg (26-34); Mean Corpuscular Volume 96 fL (80-100); Monocytes Percent Auto 11.3 % (0.0-11.0); Neutrophils Absolute Auto 3.78 K/uL (1.7-7.0); Neutrophils Percent Auto 57.5 % (42.0-72.0); Platelet Count* 313 K/uL (140-440); RDW Coefficient of Variation % 14.4 % (11.5-15.5); Red Blood Count 3.75 m/uL (4.00-5.20); White Blood Count* 6.57 K/uL (4.50-11.00)
[2023-11-21 09:21] LABS: Slide Review Reflex No
[2023-11-21 09:32] LABS: Albumin* 4.2 g/dL (3.3-5.0); Chloride* 107 mmol/L (96-114); Potassium* 4.1 mmol/L (3.6-5.1); Sodium* 139 mmol/L (135-149)
[2023-11-21 09:34] LABS: Bilirubin Total* 0.2 mg/dL (0.1-1.5); Creatinine* 0.5 mg/dL (0.5-1.5); Estimated Glomerular Filt Rate 116 ml/min
[2023-11-21 09:35] LABS: Alanine Aminotransferase* 35 U/L (4-35); Alkaline Phosphatase* 74 U/L (40-150); Anion Gap 8 mEq/L (7-15); Aspartate Amino Transferase* 32 U/L (12-35); Blood Urea Nitrogen* 15 mg/dL (5-24); Carbon Dioxide* 24 mmol/L (20-32); Glucose* 99 mg/dL (60-115); Total Protein* 7.1 g/dL (6.0-8.3)
[2023-11-21 09:47] LABS: HCG Qualitative Serum* Negative (Negative)
[2023-11-21] MEDS: 0.9 % SODIUM CHLORIDE 250 ml IV (12:00)
[2023-11-21] MEDS: SODIUM CHLORIDE 0.9 % (FLUSH) 10 ML SYRINGE IVF ×2 (12:00→14:46)
[2023-11-21] MEDS: PEMBROLIZUMAB 200 MG, TUBING PRIMARY 1 EACH, In-line 0.2 micron filter set 1 EACH in 0.... 216 MG IVPB (12:10)
[2023-11-21] MEDS: dexAMETHasone 10 MG in 0.9 % SODIUM CHLORIDE 100 ml 100 ML 420 MG IVPB (12:38)
[2023-11-21] MEDS: PALONOSETRON 0.25 MG/5 ML inj IV (12:38)
[2023-11-21] MEDS: FOSAPREPITANT 150 MG inj 150 MG in 0.9 % SODIUM CHLORIDE 250 ml 250 ML 510 MG IVPB (12:58)
[2023-11-21] MEDS: DOXOrubicin 2 MG/ML inj 115 MG IVP (13:47)
[2023-11-21] MEDS: HEPARIN 500 UNIT/5 ML SYRINGE IVF (14:46)
[2023-11-22 15:29] VITALS: BP 106/68; PULSE 69; RESP 16; TEMP 36.7; O2SAT 96
[2023-11-22] MEDS: PEGFILGRASTIM-JMDB 6 MG/0.6 ML SYRINGE SUBCUT (15:34)
[2023-12-13 09:24] LABS: Basophils Percent Auto 0.5 % (0.0-3.0); Eosinophils Percent Auto 1.8 % (0.0-7.0); Hematocrit 35.6 % (33.0-51.0); Hemoglobin* 11.4 gm/dL (12.0-16.0); Immature Granulocytes Pct Auto 0.2 %; Lymphocytes Percent Auto 20.5 % (20-44); Mean Corpuscular HGB Conc 32 gm/dL (32-36); Mean Corpuscular Hemoglobin 31 pg (26-34); Mean Corpuscular Volume 96 fL (80-100); Monocytes Percent Auto 7.9 % (0.0-11.0); Neutrophils Percent Auto 69.1 % (42.0-72.0); Platelet Count* 312 K/uL (140-440); Red Blood Count 3.72 m/uL (4.00-5.20); White Blood Count* 5.56 K/uL (4.50-11.00)
[2023-12-13 09:25] LABS: Basophils Absolute Auto 0.03 K/uL (0.00-0.30); Immature Granulocytes Abs Auto 0.01 K/uL (0.00-0.30); Lymphocytes Absolute Auto 1.14 K/uL (0.90-2.90); Neutrophils Absolute Auto 3.84 K/uL (1.7-7.0)
[2023-12-13 09:26] LABS: Slide Review Reflex No
[2023-12-13 09:37] LABS: Albumin* 4.2 g/dL (3.3-5.0)
[2023-12-13 09:38] LABS: Chloride* 107 mmol/L (96-114); Potassium* 3.8 mmol/L (3.6-5.1); Sodium* 138 mmol/L (135-149)
[2023-12-13 09:40] LABS: Bilirubin Total* 0.3 mg/dL (0.1-1.5); Creatinine* 0.5 mg/dL (0.5-1.5); Estimated Glomerular Filt Rate 116 ml/min
[2023-12-13 09:41] LABS: Alanine Aminotransferase* 41 U/L (4-35); Alkaline Phosphatase* 65 U/L (40-150); Anion Gap 7 mEq/L (7-15); Aspartate Amino Transferase* 37 U/L (12-35); Blood Urea Nitrogen* 12 mg/dL (5-24); Carbon Dioxide* 24 mmol/L (20-32); Glucose* 135 mg/dL (60-115)
[2023-12-13] MEDS: SODIUM CHLORIDE 0.9 % (FLUSH) 10 ML SYRINGE IVF ×2 (10:32→13:30)
[2023-12-13] MEDS: 0.9 % SODIUM CHLORIDE 250 ml IV (10:32)
[2023-12-13 10:35] LABS: HCG Qualitative Serum* Negative (Negative)
[2023-12-13] MEDS: PALONOSETRON 0.25 MG/5 ML inj IV (11:32)
[2023-12-13] MEDS: dexAMETHasone 10 MG in 0.9 % SODIUM CHLORIDE 100 ml 100 ML 420 MG IVPB (11:32)
[2023-12-13] MEDS: FOSAPREPITANT 150 MG inj 150 MG in 0.9 % SODIUM CHLORIDE 250 ml 250 ML 780 MG IVPB (11:51)
[2023-12-13] MEDS: DOXOrubicin 2 MG/ML inj 115 MG IVP (12:32)
[2023-12-13] MEDS: HEPARIN 500 UNIT/5 ML SYRINGE IVF (13:30)
--- NOTE | 2023-12-15 10:39 | ONC.NURNOTE ---
Patient contacted the derrick boat operator late yesterday afternoon to cancel her pegfilgrastim injection. The patient shared that she finally took the time to read the side effects and they scared her. The derrick boat operator attempted to explain that all side effects have to be listed, including rare side effects. The derrick boat operator encouraged the patient to keep her appointment and discuss it with the care team but the patient declined. Breast animal care worker attempted to call the patient x2 and was unable to leave a message as her voicemail was not set up.
--- NOTE | 2024-01-16 16:09 | ONC.NURNOTE ---
Pt did not show up for pre-op visit with Dr. Lacey today. Jeanie with [employer] called pt to check if still coming. Pt said she would not be coming to pre-op appt. She does not wish to proceed with surgery at this time, saying I understand the risks, and I am an adult. This is my decision. Jeanie reiterated to pt confirming that pt wanted to cancel today's pre-op appt, cancel appt with Dr. Zayas on 01/21 and cancel surgery. Pt verbalized yes, she would like to cancel surgery all together. When asked by Jeanie if something happened or changed, pt verbalized she did not want to talk about it further. Pt says she has been in discussion with her brother in [place], and is looking into an alternative. She did not elaborate. BNN to call pt to follow up soon. Copied from task.
== END 2024-05-19 23:59 | disposition home or self-care (01) ==
LOC: CCIC 15:00
PROVIDERS: Clinical Nurse Specialist; PCP Nurse Practitioner Family; Referring Provider Nurse Practitioner Family; Visit Provider Internal Medicine Hematology & Oncology
DX: C50.919 Malignant neoplasm of unspecified site of unspecified female breast (principal)
CPT/HCPCS: 36415; 36591; 80053; 84443; 84702; 84703; 85025; 96366; 96372; 96376; 96411; 96413; 96417; 99215; G0463; J9000; J9070; T1013; J1100; J1453; J1642; J2469; J7050; J9271; Q5108